=== PATIENT | female | born 2005 | race African-American/Black ===

== ENCOUNTER 2024-09-03 13:58 | Emergency (ER) | payer MEDICAID ==
[~2024-09-03] VITALS: Ht 162.6 cm; Wt 70.3 kg
[2024-09-03 14:47] LABS: CLARITY URINE CLEAR (CLEAR); COLOR URINE YELLOW (YELLOW); GLUCOSE URINE NEGATIVE (NEGATIVE); KETONES URINE NEGATIVE (NEGATIVE); LEUKOCYTE ESTERASE URINE TRACE (NEGATIVE); NITRITE URINE NEGATIVE (NEGATIVE); OCCULT BLOOD URINE NEGATIVE (NEGATIVE); PROTEIN URINE NEGATIVE (NEGATIVE); SPECIFIC GRAVITY URINE 1.007 (1.005-1.030)
[2024-09-03 14:49] LABS: BASOPHILS % 0.6 % (0.0-2.0); HEMATOCRIT. 32.5 % (36.0-48.0); HEMOGLOBIN. 10.6 g/dL (12.0-16.0); LYMPHOCYTES % 16.4 % (20.0-50.0); MEAN CORPUSCULAR HEMOGLOBIN 27.1 pg (28.0-32.0); MEAN CORPUSCULAR HGB CONC 32.5 g/dL (31.0-37.0); MEAN CORPUSCULAR VOLUME 83.4 fL (81.0-99.0); MEAN PLATELET VOLUME 8.4 fl (7.4-10.4); MONOCYTES % 6.5 % (2.0-8.0); NEUTROPHILS % 73.5 % (40.0-76.0); PLATELET 259 x1000/uL (130-400); RED CELL DISTRIBUTION WIDTH 14.7 % (11.6-14.6); WHITE BLOOD COUNT 10.7 x1000/uL (4.5-11.0)
[2024-09-03 14:50] LABS: CHLORIDE 104 mEq/L (98-107); SODIUM 137 mEq/L (136-145)
[2024-09-03 14:51] LABS: CALCIUM 9.2 mg/dL (8.7-10.4); CARBON DIOXIDE 22 mEq/L (21-32)
[2024-09-03 14:56] LABS: CREATININE 0.5 mg/dL (0.6-1.0); GLUCOSE 102 mg/dL (70-105); UREA NITROGEN BLOOD < 5 mg/dL (9-23)
[2024-09-03 14:57] LABS: BACTERIA URINE 1+; RBC URINE 0-2 /hpf (0-2); SQUAMOUS EPITHELIAL CELL URINE 3+ /lpf (RARE/1+); WBC URINE 0-2 /hpf (0-2); YEAST URINE NONE SEEN
[2024-09-03 15:00] LABS: INR 0.9; PROTHROMBIN TIME 10.1 sec (9.6-11.0)
[2024-09-03 15:02] VITALS: O2SAT 100
[2024-09-03 15:09] LABS: *AMPHETAMINES SCREEN URINE NEGATIVE (NEGATIVE); *BARBITURATES SCREEN URINE NEGATIVE (NEGATIVE); *BENZODIAZEPINES SCREEN URINE NEGATIVE (NEGATIVE); *COCAINE SCREEN URINE NEGATIVE (NEGATIVE); CANNABINOID URINE SCREEN NEGATIVE (NEGATIVE); METHADONE URINE SCREEN NEGATIVE (NEGATIVE); OPIATES URINE SCREEN NEGATIVE (NEGATIVE); PHENCYCLIDINE URINE SCREEN NEGATIVE (NEGATIVE)
[2024-09-03 15:10] LABS: ECSTASY MDMA SCREEN URINE NEGATIVE (NEGATIVE)
[2024-09-03 15:31] LABS: B-HCG QUANTITATIVE 2165 mIU/mL (<6)
[2024-09-03 16:08] VITALS: BP 115/73; PULSE 96; RESP 16; TEMP 36.8; O2SAT 100
[2024-09-03] MEDS ORDERED: NITR-87 MT (16:20)
== END 2024-09-03 16:34 | disposition home or self-care (01) ==
LOC: ER 13:58
DX: O26.892 Other specified pregnancy related conditions, second trimester (principal); J34.1 Cyst and mucocele of nose and nasal sinus; Z3A.25 25 weeks gestation of pregnancy; R42 Dizziness and giddiness
CPT/HCPCS: 36415; 70551; 76815; 80048; 80305; 81003; 84702; 85025; 86850; 86900; 99284; A4606

== ENCOUNTER 2025-05-01 22:54 | Emergency (ER) | payer MEDICAID ==
[~2025-05-01] VITALS: Ht 167.6 cm; Wt 71.0 kg
[~2025-05-01 22:54] MED LIST: NITR-87 MT
[2025-05-01 23:02] VITALS: O2SAT 99
[2025-05-01 23:03] VITALS: BP 107/81; PULSE 99; RESP 22; TEMP 36.8; O2SAT 96
== END 2025-05-01 23:48 | disposition left against medical advice (07) ==
LOC: ER 23:08
DX: R06.02 Shortness of breath (principal); Z53.21 Procedure and treatment not carried out due to patient leaving prior to being seen by health care provider
CPT/HCPCS: 99281